=== PATIENT | female | born 1965 | race Caucasian/White ===

== ENCOUNTER → 2019-12-25 11:19 | Outpatient (CLI) | payer SELFPAY ==
[2019-12-25 14:34] LABS: Follicle Stimulating Hormone 89.7 mIU/mL; Luteinizing Hormone 47.9 mIU/mL
[2019-12-30 20:29] LABS: HPV APTIMA, High Risk Negative (Negative); HPV Reflexed? YES, CHARGE PATIENT
== END ==
PROVIDERS: Visit Provider Student in an Organized Health Care Education/Training Program
CPT/HCPCS: 36415; 83001; 83002; 87624; 88175; G0145

== ENCOUNTER → 2020-03-11 10:56 | Outpatient (CLI) | payer SELFPAY | PROVIDERS: PCP Family Medicine; Referring Provider Urology; Visit Provider Urology | DX: N39.0 Urinary tract infection, site not specified (principal) | CPT/HCPCS: 87086; 87088 ==

== ENCOUNTER → 2020-03-25 10:32 | Outpatient (CLI) | payer SELFPAY | PROVIDERS: PCP Family Medicine; Visit Provider Urology | DX: N39.0 Urinary tract infection, site not specified (principal) | CPT/HCPCS: 87086 ==

== ENCOUNTER 2020-04-01 14:44 | Observation (INO) | payer SELFPAY ==
[2020-03-15 10:53] LABS: Hematocrit 37.8 % (37-47); Hemoglobin 12.6 g/dL (12.0-15.0); Mean Corp Hgb Conc 33.3 g/dL (32-36); Mean Corpuscular Hgb 29.7 pg (27.0-32.0); Mean Corpuscular Volume 89.2 fL (81-99); Mean Platelet Vol. 8.9 fl (6.2-12.0); Platelet Count 249 K/mm3 (150-450); RBC Distribution Width CV 12.3 % (11.6-14.6); RBC Distribution Width SD 39.5 fl (35.1-43.9); Red Blood Count 4.24 M/mm3 (4.2-5.4)
[2020-03-15 11:25] LABS: Magnesium 2.3 mg/dL (1.6-2.6)
--- NOTE | 2020-03-17 16:27 | PCM.HPOB.BLA ---
History and Physical Date of Admission: 03/18/20 Surgical History and Physical HPI: Jayshree Blancas, a 54 year old female 3 0 2 1 4, presents for [facility] on March 18, 2020 at 12:00. Patient has complaints of pelvic organ prolapse. This has been gradually worsening. Worsens with activity. Reports pelvic pain and pressure. MEDICAL HISTORY: Denies MEDICATIONS HISTORY: None ALLERGIES: NKA SOCIAL HISTORY: Alcohol Use - denies drinking Smoking - denies smoking Illicit Drug Use - denies use of street drugs FAMILY HISTORY: Mother: DM II, Hypertension and Heart Disease. Father: parkinsons and DM II. MENSTRUAL HISTORY: LMP Known?- Definite, LMP - 06/21/13, Age Onset Menarche - 14 PAST PREGNANCIES: Total Pregnancies - 6; Full Term Pregnancies - 3; Premature - 0; Abortions, Induced - 0; Abortions, Spontaneous - 2; Ectopics - 0; Multiple Births - 1; Living Children - 4 SURGICAL HISTORY: 1. D and C, 01/2006 ; - 2. GALLBLADDER, 2004 ; - 3. Toe Surgery, 2005, L great Review of Systems: GENERAL - Denies fever, or chills SKIN - Denies skin changes EYES - Denies visual changes EARS - Denies difficulty hearing NOSE - Denies nasal congestion or bleeding MOUTH - Denies sore throat or difficulty swallowing NECK - Denies pain or swelling RESPIRATORY - Denies shortness of breath or wheezing CARDIOVASCULAR - Denies palpitations or chest pain GASTROINTESTINAL - Denies nausea, vomiting, diarrhea, constipation GENITOURINARY - Denies dysuria, frequency of urination, incontinence of urine MUSCULOSKELETAL - Denies joint or muscle pain NEUROLOGICAL - Denies localized numbness or weakness PSYCHIATRIC - Denies depression or anxiety ENDOCRINE - Denies heat or cold intolerance, weight loss or gain HEMATO-IMMUNOLOGIC - Denies excesive bleeding with cuts PHYSICAL EXAM BP- 114/76 Sitting, Right arm, large cuff Weight- 172.14489 lbs Height- 64.00 inch BMI:29.72 CONSTITUTIONAL - NAD, well nourished, and well developed SKIN - No rash, lesions, or ulcers HEENT - Normocephalic, PERRLA, EOMI NECK - No nodes, no nuchal rigidity and thyroid normal size and texture LYMPH NODES - Palpation of lymph nodes in neck and groins within normal limits LUNGS - CTA x2 without wheezes, crackles or rales CARDIAC - Regular rate and rhythm without rubs, murmurs, or gallops ABDOMEN - Without hepatosplenomegaly, distention, masses, rebound, or guarding; normal bowel sounds; no hernias EXTREMITIES - No edema or calf tenderness NEUROLOGICAL - Cranial nerves II-XII grossly intact PSYCHIATRIC - A and O to time, place, person, mood and affect External Genitial Vagina - non-tender without lesions Urethra/Urethral Meatus - non-tender Bladder - non-tender Vagina - Anterior prolapse grade 2, grade 1 posterior. Gr 1 apical. +urethral hypermobility without leaking Cervix - without cervical motion tenderness and has normal size and features without evident lesions and IUD strings present Uterus - 5-6 cm in size, mobile and nontender Adnexa - clear without massess or tenderness ASSESSMENT/PLAN: 3. Stress Incontinence (female) (male), Uterovaginal Prolapse and Unspecified Pelvic and perineal pressure present. Bothersome to patient. Plan for [facility], Dr. Goyal to complete prolapse repair and sling. R/B/A discussed with patient. Risks include, but are not limited to: risk of bleeding to the point of transfusion, infection, injury to surrounding tissues (bowel/bladder, requiring prolonged catheter use), VTE, ICU admission, risk of open hysterectomy.
[2020-04-01] VITALS (10 sets, daily range): BP systolic 98–107; BP diastolic 54–74; PULSE 57–84; RESP 16–18; TEMP 36.2–36.8; O2SAT 93–100; BMI 29.5
--- NOTE | 2020-04-01 | HYST_PTH ---
PATIENT: JORJE PETE LOC: MS3 U#:[id number] AGE/SX: 54/F ROOM: MS316 RE04/01/[address]: Dr. Nataliia Bianchi DO : 1965 BED: 1 DIS: 04/02/2020 SPEC #: [id number] RECD: 04/02/20 07:48 STATUS: VALDEZ REKathryn #: [id number] CARLOS: 04/01/20 00:[address]: Nataliia Bianchi DEPT: SURGICAL PATHOLOGY RECD BY: Lisa Isabel ENTERED: 04/02/20 08:34 SP TYPE: HYSTERECT OTHR DR: MD Dr. Trina Torres MD Tissues: Uterus, NOS Procedures: Surgery Specimen Level V HEADER OPERATION: ERAS, vaginal hysterectomy, bilateral salpingectomy PRE-OP DIAGNOSIS: Stress incontinence, uterovaginal prolapse TISSUE SUBMITTED: Uterus, cervix and bilateral fallopian tubes MICROSCOPIC DIAGNOSIS Uterus, hysterectomy: Cervix - squamous metaplasia and mild chronic inflammation. Endometrium - weakly proliferative to inactive endometrium with focal cystic change. Myometrium - leiomyomas and adenomyosis. Right and left fallopian tubes - no pathologic change. AM:lisa 04/05/20 MICROSCOPIC DESCRIPTION Slides are reviewed. GROSS DESCRIPTION Received in fixative is one container labeled with the patient's name and designated uterus. The specimen consists of a uterus with attached cervix measuring 8.5 x 6 x 4.5 cm and weighing 79 gm. The ectocervix is grossly unremarkable. Present free in the container are two fallopian tubes with average lengths of 5 cm and average diameters of 0.6 cm. The fallopian tubes are not designated. The endocervical canal measures 2.6 cm in length and is grossly unremarkable. The endometrial cavity measures 3 x 2.5 cm. The light leal endometrium measures up to 0.1 cm in thickness. The myometrium measures 1.5 cm in average thickness and is distorted by two rubbery, leal-white nodules ranging in size from 0.5 to 3.5 cm in greatest dimension. The fallopian tubes have normal fimbriated ends and are grossly unremarkable. [employer] sections are submitted in nine cassettes as follows: 1 - anterior cervix, 2 - posterior cervix, 3 & 4 - anterior uterine wall with smaller myometrial mass, 5-7 - posterior myometrial wall with larger fragment, 8 - one fallopian tube, 9 - the other fallopian tube. / AM:lisa 04/02/20 TC:1 CPT: 74993
--- NOTE | 2020-04-01 07:13 | PCM.HPOB.BLA ---
History and Physical Date of Admission: 04/01/20 Surgical History and Physical Date: 03/17/2020 Name: JAYSHREE BLANCAS Age: 54 Date of : 1965 Jayshree Blancas, a 54 year old female 3 0 2 1 4, presents for [facility] on March 18, 2020 at 12:00. Patient has complaints of pelvic organ prolapse. This has been gradually worsening. Worsens with activity. Reports pelvic pain and pressure. MEDICAL HISTORY: Denies MEDICATIONS HISTORY: None ALLERGIES: NKA SOCIAL HISTORY: Alcohol Use - denies drinking Smoking - denies smoking Illicit Drug Use - denies use of street drugs FAMILY HISTORY: Mother: DM II, Hypertension and Heart Disease. Father: parkinsons and DM II. MENSTRUAL HISTORY: LMP Known?- Definite, LMP - 06/21/13, Age Onset Menarche - 14 PAST PREGNANCIES: Total Pregnancies - 6; Full Term Pregnancies - 3; Premature - 0; Abortions, Induced - 0; Abortions, Spontaneous - 2; Ectopics - 0; Multiple Births - 1; Living Children - 4 SURGICAL HISTORY: 1. D and C, 01/2006 ; - 2. GALLBLADDER, 2004 ; - 3. Toe Surgery, 2005, L great Review of Systems: GENERAL - Denies fever, or chills SKIN - Denies skin changes EYES - Denies visual changes EARS - Denies difficulty hearing NOSE - Denies nasal congestion or bleeding MOUTH - Denies sore throat or difficulty swallowing NECK - Denies pain or swelling RESPIRATORY - Denies shortness of breath or wheezing CARDIOVASCULAR - Denies palpitations or chest pain GASTROINTESTINAL - Denies nausea, vomiting, diarrhea, constipation GENITOURINARY - Denies dysuria, frequency of urination, incontinence of urine MUSCULOSKELETAL - Denies joint or muscle pain NEUROLOGICAL - Denies localized numbness or weakness PSYCHIATRIC - Denies depression or anxiety ENDOCRINE - Denies heat or cold intolerance, weight loss or gain HEMATO-IMMUNOLOGIC - Denies excesive bleeding with cuts PHYSICAL EXAM BP- 114/76 Sitting, Right arm, large cuff Weight- 172.27869 lbs Height- 64.00 inch BMI:29.72 CONSTITUTIONAL - NAD, well nourished, and well developed SKIN - No rash, lesions, or ulcers HEENT - Normocephalic, PERRLA, EOMI NECK - No nodes, no nuchal rigidity and thyroid normal size and texture LYMPH NODES - Palpation of lymph nodes in neck and groins within normal limits LUNGS - CTA x2 without wheezes, crackles or rales CARDIAC - Regular rate and rhythm without rubs, murmurs, or gallops ABDOMEN - Without hepatosplenomegaly, distention, masses, rebound, or guarding; normal bowel sounds; no hernias EXTREMITIES - No edema or calf tenderness NEUROLOGICAL - Cranial nerves II-XII grossly intact PSYCHIATRIC - A and O to time, place, person, mood and affect External Genitial Vagina - non-tender without lesions Urethra/Urethral Meatus - non-tender Bladder - non-tender Vagina - Anterior prolapse grade 2, grade 1 posterior. Gr 1 apical. +urethral hypermobility without leaking Cervix - without cervical motion tenderness and has normal size and features without evident lesions and IUD strings present Uterus - 5-6 cm in size, mobile and nontender Adnexa - clear without massess or tenderness ASSESSMENT/PLAN: 3. Stress Incontinence (female) (male), Uterovaginal Prolapse and Unspecified Pelvic and perineal pressure present. Bothersome to patient. Plan for [facility], Dr. Goyal to complete prolapse repair and sling. R/B/A discussed with patient. Risks include, but are not limited to: risk of bleeding to the point of transfusion, infection, injury to surrounding tissues (bowel/bladder, requiring prolonged catheter use), VTE, ICU admission, risk of open hysterectomy.
[2020-04-01 11:21] LABS: Bedside Glucose 90 mg/dL (70-110)
[2020-04-01] MEDS: Lactated Ringers 1,000 ML 40 ML IV (11:36)
[2020-04-01] MEDS: Acetaminophen 500 MG Tablet 1000 MG PO ×2 (11:37→18:02)
[2020-04-01] MEDS: Gabapentin 600 MG Tablet PO (11:37)
[2020-04-01] MEDS: Celecoxib 200 MG Capsule 400 MG PO (11:37)
[2020-04-01 12:22] LABS: Internal QC Validated? YES +Cl - CLEAR BKGD; Pregnancy, Urine Negative Negative
[2020-04-01] MEDS: Lidocaine 2% /Epi 1:100 (50ml) 50 ML Vial (12:26)
[2020-04-01] MEDS: Cefazolin 2 GM in 0.9% Normal Saline 100 ML IV (13:16)
--- NOTE | 2020-04-01 13:23 | OP.PCM_ITS ---
Report of Operation Date of Procedure: 04/01/20 Pre-Operative Diagnosis: Pelvic organ prolapse Post-Operative Diagnosis: Pelvic organ prolapse Surgery/Procedure Performed:: Total vaginal hysterectomy bilateral salpingectomy Description of Surgical Findings:: Normal external genitalia. Good uterine descensus. Normal-appearing uterus, fallopian tubes. Type of Anesthesia:: General Estimated Blood Loss (mL): 50cc Description of Procedure: Patient taken to the operating room and placed under general anesthesia. Patient placed in the dorsal lithotomy position and prepped and draped in the usual sterile fashion. Claros catheter placed in the bladder. Weighted speculum placed in the posterior vagina and retractor used to visualize the cervix. Cervix grasped with Conner clamps. Cervicovaginal junction injected with 1% Xylocaine with epinephrine 1 in 200,000. Circumferential incision made around the cervicovaginal junction using scalpel. Further dissection with Faria scissors. Posterior peritoneum entered sharply using Faria scissors and extended bluntly. Long weighted speculum placed through the peritoneal entry. Hermann clamp used bilaterally, with Faria scissors, suture ligated. At this time anterior peritoneum entered sharply using Faria scissors and extended bluntly. Right angle retractor placed through anterior peritoneal entry. Hermann clamp p laced on the left to grasp the uterosacral ligament; which was incised and suture-ligated. Right uterosacral ligament was grasped with a Hermann clamp incised and suture-ligated. This continued in a sequential fashion. Left cardinal ligaments grasped with Hermann clamp, incised, suture ligated. Left uterine arteries clamped with Hermann clamp incised and suture-ligated, followed by the right. Left utero ovarian ligament clamped, incised. Free tie was tied around the pedicle, followed by transfixation suture. [place] clamps used to grasp left fallopian tube Hermann clamp was placed in the mesosalpinx and Metzenbaum scissors were used to remove the fallopian tube. This pedicle was free tied and then sutured ligated with transfixation suture. Right utero- ovarian ligament was clamped with Hermann clamp, incised and uterus was removed. The pedicle was then free tied then suture-ligated with a transfixation stitch. Right fallopian tube grasped mesosalpinx was clamped with a Hermann clamp. Fallopian tube removed with Metzenbaum scissors. Pedicle then free tied and ligated with transfixation stitch. Pedicles were inspected and found to be hemostatic. Posterior peritoneum was whipstitched. Vaginal cuff then closed in a running locking fashion from each right and left side tying in the midline. Vaginal cuff noted to be hemostatic. At this time Dr. Goyal asked the scrubbed for her portion of the procedure.
--- NOTE | 2020-04-01 13:23 | DCINST_ITS ---
Discharge Activity: Return to Normal Activity, May not drive while taking narcotic pain medications., May Shower May shower in (days): 1 May resume sexual activity in: 6-8 weeks Weight Bearing Status: Weight bearing as tolerated Call your doctor if you observe: Fever of 101 or Higher, Inability to urinate, Inability to have a bowel movement, Using more than one pad per hour, Shortness of breath, Fainting spells, Chest pain Cleanse incision/area with: Soap & Water Allergies/Adverse Reactions: Allergies No Known Allergies Allergy (Verified 04/01/20 11:07) Medications to take at Discharge 5-Hydroxytryptophan (5-Htp) [5-Htp] 100 mg PO PRN PRN 03/09/20 Bio-Cleanse 3 tab PO DAILY 03/09/20 Factor V 1 tab PO DAILY 03/09/20 Lactobacillus Acidophilus [Probiotic] 1 ea PO DAILY 03/09/20 Robbins's Wort 300 mg PO PRN PRN 03/09/20 Oxycodone [Oxyir] 5 mg PO Q6H PRN PRN 7 Days #28 tablet 04/01/20 The following prescriptions were given: Oxycodone [Oxyir] 5 mg PO Q6H PRN PRN 7 Days #28 tablet PRN Reason: Pain Score 6-10 Transmission Status: Sent to [facility] Orders to be completed after discharge: Type & Screen - PAT ONLY Time Frame: 04/01/20, Facility: [facility], Location: Laboratory Primary Care Physician: Trina Acuna MD [Primary Care Provider] - Test Results: Test results from this visit will be discussed in further detail at your follow- up appointment, if applicable. Please Follow Up With: Nataliia Bianchi DO When: 2 weeks Please Follow Up With: Velma Goyal MD
[2020-04-01] MEDS: Lidocaine 1%/Epi 1:200 (30ml) 30 ML AMPUL ×2 (13:34)
[2020-04-01] MEDS: Estrogens,Conj. 1 Tube 1 DOSE (13:34)
--- NOTE | 2020-04-01 14:20 | OP.PCM_ITS ---
Problem List (1) Uterovaginal prolapse Status: Acute (2) Stress incontinence Status: Acute Report of Operation Date of Procedure: 04/01/20 Pre-Operative Diagnosis: uterovaginal prolapse, stress incontinence Post-Operative Diagnosis: same Surgery/Procedure Performed:: anterior and posterior repair, sacrospinous ligamenet fixation, midurethral sling, cystoscopy with bilateral ureteral catheterization Type of Anesthesia:: General Specimen's removed: none Estimated Blood Loss (mL): 20cc Description of Procedure: The patient is a 54-year-old female with uterovaginal prolapse and stress incontinence desires surgical intervention. She was evaluated in the office with cystoscopy and urodynamics. Informed consent was obtained. Was taken to the operating room and placed on the operating room table. Anesthesia monitored the head, neck, airway, IV access and vital signs throughout the case. Once anesthesia was appropriately administered she was placed into dorsal lithotomy position was prepped and draped in usual sterile fashion, and a Claros catheter was inserted in the sterile field. At this time Dr. Bianchi proceeded with her portion of the procedure, please see her operative report for full details. After closure of the cuff and transverse fashion, the case was turned to in. At this time the anterior vaginal wall was injected with lidocaine with epinephrine. This was done for hydrostatic dissection and hemostatic control. A midline vertical incision approximately 2 cm in length was then made. Sharp and blunt dissection was performed on both sides all the way to the apex in the midline, and to the ischial spines bilaterally. The sacrospinous ligaments were identified and dissected free from surrounding tissues. At this time the Capio device was used to pass [place] suture through the sacrospinous ligament with care being taken to avoid injury to the ureter. The suture was then brought through the dermis and then through the vaginal mucosa at the apex in full-thickness fashion. This process was repeated on the patient's contralateral side. The dermis was then trimmed to length and sutured using interrupted 2-0 Vicryl laterally at the area of the white line, midline at the apex and near the bladder neck. At this time the midline incision was closed using running interlocking 2-0 Vicryl. The sacrospinous ligaments were then tied into position and the apical prolapse and cystocele were reduced. Attention was then turned towards the posterior vaginal wall which was also injected with 1% lidocaine. A midline incision was made. Sharp and blunt dissection was performed until on either side the rectovaginal fascia was ident ified. The defect was in the midline and was wide. The decision was made to use a piece of the remaining dermis to transverse the defect. The dermis was sutured with interrupted Vicryl to the white line on both sides in several locations so that the dermis was well supported and flat. The perineal body was supported with several interrupted 2-0 Vicryl sutures. The posterior vaginal wall was brought together in running interlocking fashion with 2-0 Vicryl. Attention was then turned towards the mid urethra which was injected with 1% lidocaine. A midline vertical incision was made and sharp and blunt dissection was performed on either side of the urethra with care being taken to avoid entry into the urethra. Using the trochars, the Altis mid urethral sling was passed into the obturator complexes bilaterally. The mesh lay flat against the urethra and was tensioned using the tensioning suture. The suture was then cut. The incision was closed using running interlocking 2-0 Vicryl. The Claros catheter was then removed and a cystourethroscopy was performed through the urethra under direct visualization. The bladder mucosa in its entirety was visualized. There were no areas of injury or foreign bodies identified. There were no mucosal abnormalities identified. The ureteral orifices were located in the correct anatomic position of the bladder. Each ureter was easily intubated with a 5 [place] whistle-tip catheter which was inserted to 20 cm without difficulty. There is no hemorrhage identified. At this time the cystoscope was removed and the Claros catheter was reinserted. The vagina was packed with vaginal packing and estrogen cream. The patient was then awakened and taken to the recovery room in good condition. There were no complications during this procedure. Grafts/Implants Used: Dermis, Altis midurethral sling - Complications none - Admit VTE Documentation VTE Present on Admission: Yes VTE Mechan Device Prophylaxis: SCD's VTE Pharm Prophylaxis ordered?: Yes
--- NOTE | 2020-04-01 14:21 | PCM.DC.URO ---
Discharge Diet: No Restrictions Discharge Activity: May not drive while taking narcotic pain medications., May Shower May shower in (days): 1 May resume sexual activity in: 6-8 weeks Additional Activity Instructions:: No exercise or strenuous activity, no lifting over 5 pounds. No tub bathing, swimming or hot tubs. No sexual activity. Continue vaginal estrogen cream Call your doctor if your incision/area has: Continuous Slow Oozing, Sudden Increased Bleeding, Foul Smelling Discharge Call your doctor if you observe: Fever of 101 or Higher, Inability to urinate, Inability to have a bowel movement, Using more than one pad per hour, Shortness of breath, Fainting spells, Chest pain, Calf discomfort Additional Instructions: Remove redman catheter Sunday night before bed. Allergies/Adverse Reactions: Allergies No Known Allergies Allergy (Verified 04/01/20 11:07) Medications to take at Discharge 5-Hydroxytryptophan (5-Htp) [5-Htp] 100 mg PO PRN PRN 03/09/20 Bio-Cleanse 3 tab PO DAILY 03/09/20 Factor V 1 tab PO DAILY 03/09/20 Lactobacillus Acidophilus [Probiotic] 1 ea PO DAILY 03/09/20 Genny's Wort 300 mg PO PRN PRN 03/09/20 Oxycodone [Oxyir] 5 mg PO Q6H PRN PRN 7 Days #28 tab 04/01/20 Cephalexin [Keflex] 500 mg PO Q12 3 Days #6 cap 04/02/20 Docusate Sodium [Colace] 100 mg PO BID #60 cap 04/02/20 Ondansetron [Zofran Odt] 8 mg PO Q8H PRN PRN #20 tab 04/02/20 The following prescriptions were given: Docusate Sodium [Colace] 100 mg PO BID #60 cap Transmission Status: Received by [facility] Cephalexin [Keflex] 500 mg PO Q12 3 Days #6 cap Transmission Status: Received by [facility] Oxycodone [Oxyir] 5 mg PO Q6H PRN PRN 7 Days #28 tab PRN Reason: Pain Score 6-10 Transmission Status: Received by [facility] Ondansetron [Zofran Odt] 8 mg PO Q8H PRN PRN #20 tab PRN Reason: NAUSEA Transmission Status: Received by [facility] Primary Care Physician: Trina Acuna MD [Primary Care Provider] - Test Results: Test results from this visit will be discussed in further detail at your follow-up appointment, if applicable. Please Follow Up With: Velma Goyal MD When: call office for appt to be seen Sunday Proposed Discharge Date: 04/02/20
[2020-04-01] MEDS: Ondansetron 4 MG/2 ML Vial IV ×2 (16:00→20:52)
[2020-04-01] MEDS: Ketorolac 15 MG/ML Vial IV (16:54)
[2020-04-01] MEDS: Ondansetron ODT 4 MG Tablet PO (18:19)
[2020-04-01] MEDS: HYDROmorphone 0.5 MG/0.5 ML SYRINGE IV (20:52)
[2020-04-02] MEDS: Ketorolac 15 MG/ML Vial IV ×3 (00:20→12:08)
[2020-04-02] MEDS: Acetaminophen 500 MG Tablet 1000 MG PO ×3 (00:21→12:09)
[2020-04-02 03:36] VITALS: BP 106/53; PULSE 90; RESP 16; TEMP 36.9; O2SAT 94
[2020-04-02] MEDS: Ondansetron ODT 4 MG Tablet PO (05:19)
[2020-04-02 06:42] LABS: Hematocrit 33.6 % (37-47); Hemoglobin 11.4 g/dL (12.0-15.0); Mean Corp Hgb Conc 33.9 g/dL (32-36); Mean Corpuscular Hgb 30.4 pg (27.0-32.0); Mean Corpuscular Volume 89.6 fL (81-99); Platelet Count 209 K/mm3 (150-450); RBC Distribution Width CV 12.3 % (11.6-14.6); RBC Distribution Width SD 40.5 fl (35.1-43.9); Red Blood Count 3.75 M/mm3 (4.2-5.4); White Blood Count 8.5 K/mm3 (4.4-11.0)
--- NOTE | 2020-04-02 08:42 | PCM.PN.BLA ---
Progress Note Patient is awake in bed. Had severe nausea and emesis last night. Has been up to chair this morning. Feeling little better. Pain is controlled. Vitals are good. Abdomen is soft. Redman with clear urine. Vaginal packing and redman catheter removed without incident. A/P POD#1 hysterectomy and pelvic floor reconstruction trial of void today. control nausea. if doing well, plan discharge later today without or with redman catheter.
--- NOTE | 2020-04-02 09:23 | PN.OBGYN_ITS ---
Patient Problems: Active and Suspected Problems Uterovaginal prolapse (Acute) Stress incontinence (Acute) Subjective: POD1 Nausea overnight, feeling improved this morning. Up in chair. Had some breakfast and is drinking. Has not yet voided. - Physical Exam Vitals/I&O's: Vital Signs Temp Pulse Resp BP Pulse Ox 98.4 F 90 16 106/53 L 94 04/02/20 03:36 04/02/20 03:36 04/02/20 03:36 04/02/20 03:36 04/02/20 03:36 Oxygen Flow Rate (L/min) 6 Oxygen Delivery Method Room Air Weight: 78.1 kg Body Mass Index (BMI) 29.5 Intake and Output for Last 24 Hours 03/31/20 04/01/20 04/02/20 23:59 23:59 23:59 Intake Total 214.5 / 414.5 1206.67 / 1206.67 Output Total 750 / 1300 750 / 750 Balance -535.5 / -885.5 456.67 / 456.67 General: Alert, Oriented x3, No apparent distress HEENT: Atraumatic, Normocephalic Neck: Supple Lungs: Normal air movement Cardiovascular: Regular rate Abdomen: Soft, Non Tender Extremities: No edema Neurological: Cranial nerves II-XII grossly intact Psych/Mental Status: Normal Affect Microbiology Past 72 Hours 03/31/20 11:20 Interface Orders SARS-CoV-2 Antigen (Rapid) - Final Laboratory Results 04/01/20 11:05: Urine Test Negative 04/01/20 11:13: POC Glucose 90 04/01/20 12:00: Blood Type A POSITIVE, Antibody Screen NEGATIVE 04/02/20 06:20: WBC 8.5, RBC 3.75 L, Hgb 11.4 L, Hct 33.6 L, MCV 89.6, MCH 30.4, MCHC 33.9, RDW Std Deviation 40.5, RDW Coeff of Chikis 12.3, Plt Count 209, MPV 9.0 Current Medications Acetaminophen (Acetaminophen 500 Mg Tablet) 1,000 mg PO Q6 [facility] Last Admin: 04/02/20 05:24 Dose: 1,000 mg Documented by: Cephalexin (Cephalexin 500 Mg Capsule) 500 mg PO Q12 [facility] Last Admin: 04/01/20 22:41 Dose: Not Given Documented by: Docusate Sodium (Docusate Sodium 100 Mg Capsule) 100 mg PO BID [facility] Last Admin: 04/01/20 22:41 Dose: Not Given Documented by: Enoxaparin Sodium (Enoxaparin 40 Mg/0.4 Ml Syringe) 40 mg SC DAILY [facility] Hydromorphone HCl (Hydromorphone 0.5 Mg/0.5 Ml Syringe) 0.5 mg IV Q3H PRN PRN PRN Reason: Pain Score 6-10 Last Admin: 04/01/20 20:52 Dose: 0.5 mg Documented by: Lactated Ringer's () 1,000 mls @ 40 mls/hr IV .Q25H [facility] Last Admin: 04/02/20 09:02 Dose: Not Given Documented by: Ketorolac Tromethamine (Ketorolac 15 Mg/Ml Vial) 15 mg IV Q6 [facility] Stop: 04/03/20 00:01 Last Admin: 04/02/20 05:25 Dose: 15 mg Documented by: Nutritional Formula (Lactose Free) (Ensure Enlive 120 Ml Liquid) 120 ml PO TIDCM [facility] Last Admin: 04/02/20 08:44 Dose: 120 ml Documented by: Ondansetron HCl (Ondansetron Odt 4 Mg Tablet) 4 mg PO Q6H PRN PRN PRN Reason: NAUSEA Last Admin: 04/02/20 05:19 Dose: 4 mg Documented by: Ondansetron HCl (Ondansetron 4 Mg/2 Ml Vial) 4 mg IV Q4H PRN PRN PRN Reason: NAUSEA Last Admin: 04/01/20 20:52 Dose: 4 mg Documented by: Oxycodone HCl (Oxycodone 5 Mg Tablet) 5 - 10 mg PO Q4H PRN PRN PRN Reason: Pain Score 4-10 Promethazine HCl (Promethazine 25 Mg/Ml Syringe) 12.5 mg IV Q4H PRN PRN PRN Reason: NAUSEA/VOMITING Medical Necessity - Tobacco Use Smoking Status: Never smoker Tobacco Use: Non-smoker Assessment/Plan All Active Problems Uterovaginal prolapse (Acute) Stress incontinence (Acute) POD#1 s/p TVH-BS, pelvic floor reconstruction. Control nausea. If feeling improved and passing voiding trial, home today when okayed by Dr. Goyal
--- NOTE | 2020-04-02 09:27 | NURSING ---
pt up to br to attempt to void but unable. pt passing gas however. some reports still of nausea though just in waves. will monitor. up to chair and heating pad to rt hip for c/o pain now.
[2020-04-02 09:36] VITALS: BP 98/59; PULSE 72; RESP 16; TEMP 36.7; O2SAT 95
[2020-04-02] MEDS: Enoxaparin 40 MG/0.4 ML Syringe SC (09:50)
[2020-04-02] MEDS: Docusate Sodium 100 MG Capsule PO (09:50)
[2020-04-02] MEDS: Cephalexin 500 MG Capsule PO (09:53)
--- NOTE | 2020-04-02 11:24 | NURSING ---
pt unable to void and feeling pressure like needs to go bs for 913. here and up to amb in cheek then to try and void again but unable. dr. mora office called for further orders.
[2020-04-02 13:00] VITALS: BP 102/45; PULSE 70; RESP 16; TEMP 36.7; O2SAT 97
--- NOTE | 2020-04-02 13:19 | NURSING ---
1200 new order for redman via dr. 16fr redman inserted with immediate return 1200cc pale dilute urine. teaching given on leg bag and catheter care. no questions voiced.
== END 2020-04-02 13:10 | disposition home or self-care (01) ==
LOC: SDC 15:15 → MS3 15:15
PROVIDERS: Anesthesiology; Urology; Admitting Provider Student in an Organized Health Care Education/Training Program; PCP Family Medicine; Referring Provider Student in an Organized Health Care Education/Training Program; Visit Provider Student in an Organized Health Care Education/Training Program
PROC: (CPT 58260; principal; 2020-04-01 12:10)
PROC: (CPT 57260; 2020-04-01 12:10)
DX: N81.4 Uterovaginal prolapse, unspecified (principal); Z20.828 Contact with and (suspected) exposure to other viral communicable diseases; N39.3 Stress incontinence (female) (male); N80.0 Endometriosis of uterus; D25.9 Leiomyoma of uterus, unspecified; Z79.899 Other long term (current) drug therapy
CPT/HCPCS: 00940; 57260; 57288; 58262; 36415; 81025; 82962; 83735; 85027; 86850; 86900; 86901; 87426; 88307; 96372; 96374; 96375; 96376; 99218; C9803; J7120; C1758; G0378; G0379; J2405